=== PATIENT | male | born 1995 | race Caucasian/White ===

== ENCOUNTER 2017-12-21 19:02 | Emergency (ER) | payer OTHER ==
[2017-12-21 19:13] VITALS: BP 140/73; PULSE 73; RESP 16; TEMP 97.9; O2SAT 93
--- NOTE | 2017-12-21 19:37 | EDPHY ---
H & P Smoking Status: Never smoked Time Seen by Provider: 12/21/17 19:08 HPI/ROS: CHIEF COMPLAINT: Right shoulder injury HISTORY OF PRESENT ILLNESS: 22-year-old male presents to the emergency department by private vehicle complaints of pain in his right shoulder. The patient was skiing 2 days ago and was going down alleged had his right pole planted on his body slid and he hyperextended his right shoulder. He was able to keep skiing. 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 He states the next day when he woke up he was having pain especially with certain range of motion. He is right-hand dominant. He denies any other trauma or injury. ROS: Denies numbness or tingling in his fingers, pain in his right elbow or right wrist. Denies feelings of weakness in his right upper extremity. (Vicky Cruz) Past Medical/Surgical History: Orthopedic injuries (Vicky Cruz) Social History: 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 No palpable bony abnormality. He has pain especially with external rotation of his right shoulder. He also has some discomfort with abduction and abduction against resistance. Normal and equal strength for the upper extremities bilaterally. Normal sensation to light touch with normal 2 point discrimination. Full range of motion of his right hand, right elbow and right wrist. 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 (Vicky Cruz) ED Course/Re-evaluation: 22-year-old male presents to the emergency department with right shoulder injury. I do not think x-rays are indicated. He does not have any history of direct fall onto his right shoulder. Patient has no neurologic findings. He does have full range of motion of his right shoulder however does have pain associated with this. I offered MRI in the emergency department however explained to the patient that I could not guarantee that this would be covered by his insurance. I offered the patient placing him in a sling and given orthopedic referral and he could follow up as an outpatient. The patient elected to follow up as an outpatient and schedule his MRI as an outpatient. I think this is reasonable. The patient has no focal neurologic findings. The case was discussed with Dr. Carole Mehta, secondary supervising physician, who did not directly evaluate the patient but agrees with treatment and plan. ( Vicky Cruz) The patient was evaluated and managed by the Physician Band Sawing Machine Operator. I discussed the patient's presentation and course with the midlevel provider with them and agree with the evaluation. My co-signature indicates that I have reviewed this chart and I agree with the findings and plan of care as documented. I am the secondary supervising physician. (Carole Mehta) - Depart Disposition: Home, Routine, Self-Care Clinical Impression: Sprain of right shoulder Qualifiers: Encounter type: initial encounter Shoulder sprain type: unspecified sprain Qualified Code(s): S43.401A - Unspecified sprain of right shoulder joint, initial encounter Condition: Good Instructions: Shoulder Sprain (ED) Additional Instructions: Sling for comfort and support. Ibuprofen 600mg every 8 hours for pain as directed. Follow up with orthopedic surgeon to recheck and discuss obtaining outpatient MRI of your right shoulder. Referrals: Joe Mc MD [Medical Doctor] - 1-2 days without fail (Orthopedic surgeon on-call)
== END 2017-12-21 19:55 | disposition home or self-care (01) ==
DX: S43.401A Unspecified sprain of right shoulder joint, initial encounter (principal); V00.328A Other snow-ski accident, initial encounter; Y93.23 Activity, snow (alpine) (downhill) skiing, snowboarding, sledding, tobogganing and snow tubing
CPT/HCPCS: A4565

== ENCOUNTER 2018-11-05 22:30 | Emergency (ER) | payer OTHER ==
--- NOTE | 2018-11-05 22:57 | EDPHY ---
H & P Stated Complaint: sore throat, cough, weakness, dizziness Time Seen by Provider: 11/05/18 22:57 HPI/ROS: HPI CHIEF COMPLAINT: Sore throat, dry cough, fever HISTORY OF PRESENT ILLNESS: This is a very pleasant 23-year-old male, otherwise healthy no significant medical history, did not get his flu shot this year, presents emergency room with sore throat. Patient has been sick for the proximally 2-3 days worsening sore throat and fever. He had a fever at home of 102. Endorses dry cough. Main complaint sore throat. No change in his speech, not drooling able to swallow. Also complains of some muscle aches. Past Medical History: No significant medical history Past Surgical History: No significant surgical history Social History: Denies daily use of drugs alcohol tobacco. [employer] student. Family History: Noncontributory ROS REVIEW OF SYSTEMS: 10 Systems were reviewed and negative with the exception of the elements mentioned in the history of present illness. Exam Constitutional nontoxic, triage nursing summary reviewed, vital signs reviewed , awake/alert. Eyes normal conjunctivae and sclera, EOMI, PERRLA. 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 Respiratory clear to auscultation bilaterally, normal breath sounds, no respiratory distress, no wheezing. Cardiovascular rate normal, regular rhythm, no murmur, no edema, distal pulses normal. Gastrointestinal soft, non-tender, no rebound, no guarding, normal bowel sounds, no distension, no pulsatile mass. Genitourinary no CVA tenderness. Musculoskeletal no midline vertebral tenderness, full range of motion, no calf swelling, no tenderness of extremities, no meningismus, good pulses, neurovascularly intact. Skin pink, warm, & dry, no rash, skin atraumatic. Neurologic awake, alert and oriented x 3, AAOx3, moves all 4 extremities equally, motor intact, sensory intact, CN II-XII intact, normal cerebellar, normal vision, normal speech. Psychiatric normal mood/affect. Heme/Lymph/Immune no lymphadenopathy. Differential Diagnosis: Includes but is not limited to in a particular order viral syndrome, viral pharyngitis, strep pharyngitis, influenza, pneumonia Medical Decision Making: Plan for this patient rapid strep and influenza. Clinically on exam I believe him to have strep. Re-evaluation: Rapid strep test negative. Influenza test negative. On exam patient is erythematous tonsillar bed with exudate. Will treat for pharyngitis strep. Return precautions discussed the patient understands return emergency room if develops worsening symptoms includes high fever, vomiting, not doing well. Worsening throat pain. Understands drink lots of fluids Alternate Tylenol Motrin for fever control pain control. Prescription provided for Augmentin, Decadron, ibuprofen. Source: Patient - Personal History Tetanus Vaccine Date: <10yrs - Medical/Surgical History Hx Asthma: No Hx Chronic Respiratory Disease: No Hx Diabetes: No Hx Cardiac Disease: No Hx Renal Disease: No Hx Cirrhosis: No Hx Alcoholism: No Hx HIV/AIDS: No Hx Splenectomy or Spleen Trauma: No Other PMH: Anxiety, ADHD - Social History Smoking Status: Never smoked Constitutional: Initial Vital Signs Temperature (C) 37.8 C 11/05/18 22:43 Heart Rate 99 11/05/18 22:43 Respiratory Rate 20 11/05/18 22:43 Blood Pressure 139/65 H 11/05/18 22:43 O2 Sat (%) 95 11/05/18 22:43 O2 Delivery Mode Nasal Cannula O2 (L/minute) 2 Allergies/Adverse Reactions: No Known Allergies Allergy (Verified 11/05/18 22:42) Home Medications: Medication Instructions Recorded Concerta 07/29/16 GABAPENTIN 12/21/17 Prozac 10 MG (*) 12/21/17 Amoxicillin/Clavulanate Pot 875 mg PO BID #14 tab 11/05/18 [Augmentin 875 MG TAB (*)] Dexamethasone [Decadron 4 MG (*)] 4 mg PO DAILY #4 tab 11/05/18 Ibuprofen [Motrin (*)] 800 mg PO Q6-8PRN #10 tab 11/05/18 Medical Decision Making - Data Points Laboratory Results: 11/05/18 11/05/18 Unknown 23:00 Nasal Influenza A PCR NEGATIVE FOR FLU A (NEGATIVE) Nasal Influenza B PCR NEGATIVE FOR FLU B (NEGATIVE) RSV (PCR) NEGATIVE FOR RSV (NEGATIVE) Group A Strep Screen NEGATIVE (NEGATIVE) Group A Strep DNA Pending Departure - Departure Disposition: Home, Routine, Self-Care Clinical Impression: Strep pharyngitis Condition: Good Instructions: Pharyngitis (ED), Strep Throat (ED) Additional Instructions: 1. Make sure to drink lots of fluids stay well-hydrated 2. Return to the emergency room if worsening symptoms. 3. Alternate Tylenol Motrin for paper and pain control. Referrals: Patient,NotPresent [Unknown] - As per Instructions Prescriptions: Amoxicillin/Clavulanate Pot [Augmentin 875 MG TAB (*)] 875 mg PO BID #14 tab Dexamethasone [Decadron 4 MG (*)] 4 mg PO DAILY #4 tab Ibuprofen [Motrin (*)] 800 mg PO Q6-8PRN #10 tab
[2018-11-06] MEDS ORDERED: DEXAMETHASONE 10 MG/ML VIAL PO ONE (00:33)
[2018-11-06] MEDS ORDERED: IBUPROFEN 800 MG TAB PO ONE (00:33)
[2018-11-06] MEDS ORDERED: AMOXICILLIN/CLAVULANATE POT 875/125 MG TAB PO ONE (00:33)
[2018-11-06] MEDS ORDERED: DEXAMETHASONE 4 MG TAB ONE (00:42)
[2018-11-06 00:54] VITALS: BP 119/89
== END 2018-11-06 00:53 | disposition home or self-care (01) ==
DX: J02.0 Streptococcal pharyngitis (principal); F41.9 Anxiety disorder, unspecified

== ENCOUNTER 2018-11-09 16:18 | Emergency (ER) | payer OTHER ==
[2018-11-09] MEDS ORDERED: HYOSCYAMINE SULFATE 0.125 MG TAB PO ONE (16:48)
[2018-11-09] MEDS ORDERED: LIDOCAINE 2% VISCOUS 15 ML UDCUP PO ONE (16:48)
[2018-11-09] MEDS ORDERED: MAG HYDROX/AL HYDROX/SIMETH 30 ML UDCUP PO ONE (16:48)
--- NOTE | 2018-11-09 16:51 | EDPHY ---
H & P Stated Complaint: abd pain Time Seen by Provider: 11/09/18 16:43 HPI/ROS: CHIEF COMPLAINT: Epigastric pain HISTORY OF PRESENT ILLNESS: 23-year-old male generally healthy in the ER complaining of epigastric pain since this morning. He was seen the ER 4 days ago for suspected strep pharyngitis, given Decadron, started on amoxicillin which he has been taking as directed. Minimal alcohol and minimal caffeine use or energy drink use, awoke with epigastric pain this morning without radiation. No nausea or vomiting. Went to [facility] given GI cocktail and referred to the ER for evaluation. Notes minimal to moderate improvement in symptoms after GI cocktail. No melena or hematochezia. No hematemesis. Sore throat improved. Denies chronic NSAID use, heavy alcohol abuse, back or flank pain, chest pain, dyspnea, trauma. PRIMARY CARE PROVIDER: REVIEW OF SYSTEMS: 10 systems reviewed and negative with the exception of the elements mentioned in the history of present illness PAST MEDICAL & SURGICAL HISTORY: No pertinent medical or surgical history SOCIAL HISTORY:Nonsmoker, student PHYSICAL EXAM (Prior to examination, patient consented to physical exam, hands were washed and my usual and customary physical exam procedures followed) 1) GENERAL: Well-developed, well-nourished, alert and oriented. Appears uncomfortable s. 2) HEAD: Normocephalic, atraumatic 3) HEENT: Pupils equal, round, reactive to light bilaterally. Sclera anicteric. ][Nasopharynx, oropharynx, clear, no lesions.Mois Mucous membranes. 4) NECK:Full range of motion, no meningeal signs 5) LUNGS:Clear auscultation bilaterally, no wheezes, no rhonchi, no retractions 6) HEART:Regular rate and rhythm, no murmur, no heave, no gallop 7) ABDOMEN:Tender to palpation epigastrium. No palpable or pulsatile mass. Negative McBurney's, negative Arreola's, negative Rovsing's, negative peritoneal sig, 8) MUSCULOSKELETAL:Moving all extremities, no focal areas of tenderness, no obvious trauma. No peripheral edema or discoloration 9) BACK:No CVA tenderness, no midline vertebral tenderness, no fluctuance, no step-off, no obvious trauma, no visual or palpable abnormality 10) SKIN:No rash, no petechiae 1 11) Psychiatric: Patient is oriented X 3, there is no agitation DIFFERENTIAL DIAGNOSIS: In no particular order, including but not limited to biliary colic, cholecystitis, peptic ulcer disease, pancreatitis, and gastroenteritis. This is a partial list of diagnoses considered. These cons - Personal History Current Tetanus/Diphtheria Vaccine: Yes Current Tetanus Diphtheria and Acellular Pertussis (TDAP): Yes Tetanus Vaccine Date: <10yrs - Medical/Surgical History Hx Asthma: No Hx Chronic Respiratory Disease: No Hx Diabetes: No Hx Cardiac Disease: No Hx Renal Disease: No Hx Cirrhosis: No Hx Alcoholism: No Hx HIV/AIDS: No Hx Splenectomy or Spleen Trauma: No Other PMH: Anxiety, ADHD - Social History Smoking Status: Never smoked Constitutional: Initial Vital Signs Temperature (C) 36.7 C 11/09/18 16:23 Heart Rate 56 L 11/09/18 16:23 Respiratory Rate 16 11/09/18 16:23 Blood Pressure 131/73 H 11/09/18 16:23 O2 Sat (%) 98 11/09/18 16:23 O2 Delivery Mode Room Air Allergies/Adverse Reactions: No Known Allergies Allergy (Verified 11/09/18 16:22) Home Medications: Medication Instructions Recorded Concerta 07/29/16 Amoxicillin/Clavulanate Pot 875 mg PO BID #14 tab 11/05/18 [Augmentin 875 MG TAB (*)] Dexamethasone [Decadron 4 MG (*)] 4 mg PO DAILY #4 tab 11/05/18 Ibuprofen [Motrin (*)] 800 mg PO Q6-8PRN #10 tab 11/05/18 Docusate Sodium [Colace] 100 mg PO BID #6 cap 11/09/18 Pantoprazole Sodium [Protonix 40mg 40 mg PO DAILY #30 tab 11/09/18 (RX)] Sucralfate [Carafate] 1 gm PO QID #15 tab 11/09/18 Medical Decision Making - Diagnostics Imaging Results: Imaging Impressions Abdomen X-Ray 11/09/18 16:48 Impression: Possible constipation. Otherwise negative. Abdomen CT 11/09/18 17:44 Impression: 1. Possibly mild pancreatitis involving the pancreatic head. Correlation with serum amylase and lipase is necessary. 2. Gastric antral thickening possibly representing gastritis. 3. Small amount of free fluid in the right hemipelvis of uncertain etiology. 4. Constipation. Results called to Liam Szymanski at 6:23 PM. General information for patients regarding this examination can be found at [email or web address]. If you have questions or comments about this report, please contact me at [phone] (hospital) or [phone] (cell). images reviewed by myself ED Course/Re-evaluation: 7:25 p.m.: Re-evaluation, received GI cocktail in the ER which states initially caused him irritation however he is now asymptomatic. Re-examined his abdomen which is soft no guarding no rebound. He is smiling, sitting upright, watching TV appears comfortable. He is returning to [facility] for [place] [employer] tomorrow. He is returning for the spring [facility]. I am starting the patient on proton pump inhibitor, discussed dietary precautions instructions. He is also noted to be constipated and he notes that he has not had a bowel movement several days. This may be contributing to his abdominal pain as well. I am prescribing him medication for constipation as well. Care of patient under supervision of secondary supervising physician Dr Campuzano . - Data Points Laboratory Results: Laboratory Results 11/09/18 16:50 11/09/18 16:50 11/09/18 11/09/18 16:50 16:50 WBC 7.22 10^3/uL 10^3/uL (3.80-9.50) RBC 4.82 10^6/uL 10^6/uL (4.40-6.38) Hgb 14.7 g/dL g/dL (13.7-17.5) Hct 43.1 % % (40.0-51.0) MCV 89.4 fL fL (81.5-99.8) MCH 30.5 pg pg (27.9-34.1) MCHC 34.1 g/dL g/dL (32.4-36.7) RDW 12.2 % % (11.5-15.2) Plt Count 225 10^3/uL 10^3/uL (150-400) MPV 9.5 fL fL (8.7-11.7) Neut % (Auto) 57.8 % % (39.3-74.2) Lymph % (Auto) 31.0 % % (15.0-45.0) Sac % (Auto) 8.9 % % (4.5-13.0) Eos % (Auto) 1.5 % % (0.6-7.6) Baso % (Auto) 0.4 % % (0.3-1.7) Nucleat RBC Rel Count 0.0 % % (0.0-0.2) Absolute Neuts (auto) 4.17 10^3/uL 10^3/uL (1.70-6.50) Absolute Lymphs (auto) 2.24 10^3/uL 10^3/uL (1.00-3.00) Absolute Monos (auto) 0.64 10^3/uL 10^3/uL (0.30-0.80) Absolute Eos (auto) 0.11 10^3/uL 10^3/uL (0.03-0.40) Absolute Basos (auto) 0.03 10^3/uL 10^3/uL (0.02-0.10) Absolute Nucleated RBC 0.00 10^3/uL 10^3/uL (0-0.01) Immature Gran % 0.4 % % (0.0-1.1) Immature Gran # 0.03 10^3/uL 10^3/uL (0.00-0.10) Sodium 140 mEq/L mEq/L (135-145) Potassium 4.1 mEq/L mEq/L (3.5-5.2) Chloride 103 mEq/L mEq/L (97-110) Carbon Dioxide 26 mEq/l mEq/l (22-31) Anion Gap 11 mEq/L mEq/L (6-14) BUN 16 mg/dL mg/dL (7-23) Creatinine 0.8 mg/dL mg/dL (0.7-1.3) Estimated GFR > 60 Glucose 86 mg/dL mg/dL (70-100) Calcium 9.3 mg/dL mg/dL (8.5-10.4) Total Bilirubin 0.4 mg/dL mg/dL (0.1-1.4) Conjugated Bilirubin 0.1 mg/dL mg/dL (0.0-0.5) Unconjugated Bilirubin 0.3 mg/dL mg/dL (0.0-1.1) AST 22 IU/L IU/L (17-59) ALT 26 IU/L IU/L (21-72) Alkaline Phosphatase 60 IU/L IU/L (38-126) Total Protein 7.1 g/dL g/dL (6.3-8.2) Albumin 4.3 g/dL g/dL (3.5-5.0) Lipase 52 IU/L IU/L (23-300) Medications Given: Discontinued Medications Al Hydroxide/Mg Hydroxide (Maalox Susp) 30 ml PO ONCE ONE Stop: 11/09/18 16:49 Last Admin: 11/09/18 17:00 Dose: 30 ml Hyoscyamine Sulfate (Levsin, Hyomax-Sl) 0.25 mg PO ONCE ONE Stop: 11/09/18 16:49 Last Admin: 11/09/18 16:59 Dose: 0.25 mg Lidocaine (Lidocaine 2% Viscous) 15 ml PO ONCE ONE Stop: 11/09/18 16:49 Last Admin: 11/09/18 17:00 Dose: 15 ml Departure - Departure Disposition: Home, Routine, Self-Care Clinical Impression: Constipation Qualifiers: Constipation type: other constipation type Qualified Code(s): K59.09 - Other constipation Gastritis Qualifiers: Chronicity: acute Gastritis bleeding: without bleeding Condition: Good Instructions: Gastritis (ED), Constipation (ED) Additional Instructions: Seek immediate medical attention if you develop new or worsening symptoms, if you develop fevers, chills, inability to tolerate oral intake or any other symptoms that concerns you. Referrals: Rolando Ugalde MD [Medical Doctor] - 5-7 days, call for appt. (Dr. Rolando Ugalde and his colleagues are gastroenterologists) Prescriptions: Docusate Sodium [Colace] 100 mg PO BID #6 cap Pantoprazole Sodium [Protonix 40mg (RX)] 40 mg PO DAILY #30 tab Sucralfate [Carafate] 1 gm PO QID #15 tab
[2018-11-09 17:02] LABS: PLATELET COUNT 225 10^3/uL (150-400)
[2018-11-09] MEDS ORDERED: IOPAMIDOL (ISOVUE-300) 100 ML BTL ONE (17:49)
[2018-11-09 19:36] VITALS: BP 141/78
== END 2018-11-09 19:40 | disposition home or self-care (01) ==
DX: K59.09 Other constipation (principal); F41.9 Anxiety disorder, unspecified; F90.9 Attention-deficit hyperactivity disorder, unspecified type
CPT/HCPCS: Q9967